=== PATIENT | male | born 1970 | race Caucasian/White ===

== ENCOUNTER 2020-05-15 | Outpatient (REF) | payer BC, SELFPAY | END 2020-05-15 00:01 | disposition home or self-care (01) | LOC: HO.LNP | PROVIDERS: Visit Provider Nurse Practitioner Family | DX: Z20.828 Contact with and (suspected) exposure to other viral communicable diseases (principal) | CPT/HCPCS: U0003 ==

== ENCOUNTER 2020-05-16 10:37 | Outpatient (REF) | payer BC, SELFPAY | END 2020-05-16 10:38 | disposition home or self-care (01) | LOC: HO.LAB 10:37 | PROVIDERS: Visit Provider Nurse Practitioner Family | DX: Z13.89 Encounter for screening for other disorder (principal) | CPT/HCPCS: U0003 ==

== ENCOUNTER 2024-05-18 10:06 | Emergency (ER) | payer OTHER, BC, SELFPAY ==
--- NOTE | ~2024-05-18 | XR_ITS ---
EXAMINATION: XR CLAVICLE, RIGHT CLINICAL INFORMATION: Work injury. Patient states injury at work yesterday. Pointed to lump on clavicle. COMPARISON: None available. TECHNIQUE: Two views of the right clavicle. FINDINGS: Moderate degenerative changes with hypertrophic change in the acromioclavicular joint. Glenohumeral alignment maintained. No displaced fracture of the clavicle is appreciated. Mild focal periosteal reaction along the superior aspect of the distal shaft of the clavicle of uncertain etiology and significance. XR/XR clavicle RT IMPRESSION: 1. Moderate degenerative changes in the acromioclavicular joint. 2. No displaced fracture of the clavicle is appreciated. 3. Mild focal periosteal reaction along the superior aspect of the distal shaft of the clavicle of uncertain etiology and significance. This study was presented today, May 18, 2024, for interpretation. Stat results provided at this time as requested by referring provider. Electronically signed by: Samara Bravo MD 05/18/2024 11:35 AM [facility]
[2024-05-18 10:31] VITALS: BP 145/82; PULSE 62; RESP 16; TEMP 36.8; O2SAT 98; BMI 27.5
--- NOTE | 2024-05-18 12:00 | ED_ITS ---
HPI - Extremity Problem General Chief complaint: Extremity Injury, Upper Stated complaint: shoulder blade/ work inj Time Seen by Provider: 05/18/24 11:59 Source: patient Mode of arrival: ambulatory Limitations: no limitations History of Present Illness ED Provider: Anita JOYCE Narrative: Patient is a 53-year-old male presenting to emergency department with complaint of right anterior shoulder/clavicle pain since yesterday. 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 Reports the area has bothered him for the past several months but he chalked it up to aches and pains related to aging. He denies any initial precipitating fall or other trauma. Denies any weakness, numbness, tingling to arm. Has not taken any [id number] medications for his symptoms prior to arrival. Reports raised area to medial aspect of clavicle. Onset (ago): day(s) Location: right Quality: aching Relieving factors: rest Exacerbating factors: range of motion Associated symptoms: denies other symptoms Related Data Home Medications ?Medication ?Instructions ?Recorded ?Confirmed albuterol sulfate 90 mcg/actuation 2 puff PO Q4H PRN wheezing 05/15/20 aerosol inhaler citalopram 10 mg tablet 10 mg PO DAILY 05/15/20 Previous Rx's ?Medication ?Instructions ?Recorded amoxicillin 875 mg-potassium 1 tab PO BID 10 days #20 tabs 05/16/20 clavulanate 125 mg tablet (Augmentin) lidocaine 5 % topical patch 1 patch topical DAILY #15 ea 05/18/24 naproxen 500 mg tablet 500 mg PO BID #28 tabs 05/18/24 Allergies Allergy/AdvReac Type Severity Reaction Status Date / Time No Known Allergies Allergy Verified 05/18/24 10:34 Review of Systems Review of Systems: As per HPI. Yes all other systems are reviewed and are negative Constitutional: Constitutional: Reports as per HPI [facility] Social History Social History Advance Directives: No Advance Directives Information Provided: Yes Physical Exam Vital Signs: Vital Signs: Last Vital Signs Temp 98.2 F 05/18/24 10:31 Pulse 62 05/18/24 10:31 Resp 16 05/18/24 10:31 BP 145/82 H 05/18/24 10:31 Pulse Ox 98 05/18/24 10:31 O2 Del Method Room Air 05/18/24 10:31 BMI result Body Mass Index 27.5 Vital signs have been reviewed and appear to be correct. Blood pressure normal. Heart rate normal. Respiratory rate normal. Temperature normal. Oxygen saturation normal. Const: General: cooperative, healthy appearing and no acute distress Orientation/consciousness: oriented to person, oriented to place, oriented to time and patient oriented x3 Limitations: no limitations HEENT: Head: Yes normocephalic and Yes atraumatic Ears: external ears normal General nose exam: Normal external nose present Face and sinus: Yes face symmetric Mouth: oropharynx normal and moist mucous membranes Throat: Yes uvula midline Eyes: Pupils: Equal, round and reactive pupils present Neck: Neck: Yes normal visual inspection and Yes supple Resp: Effort & Inspection: normal respiratory effort and able to speak in complete sentences Auscultation: clear to auscultation bilaterally Cardio: Rate: regular rate Rhythm: regular rhythm Heart sounds: S1 normal heart sound present and S2 normal heart sound present GI: Palpation (GI): Soft to palpation and nontender Auscultation: normoactive bowel sounds : General: Yes no CVA tenderness Back/Spine/Pelvis: Back: no CVA tenderness Skin: General skin exam: elasticity normal and turgor normal Neuro: General: oriented to person, oriented to place, oriented to time, patient oriented x3, moves all extremities, no focal motor deficits and CN's II- XI intact bilaterally Cranial nerves: Yes Equal, round and reactive pupils present Cognition (Neuro): normal cognition Extrem: General: Yes full ROM, Yes no pedal edema and Yes no calf tenderness Right upper extremity: shoulder/upper arm Details: axillary nerve sensory function normal, normal ROM and deformity Location: of the clavicle Location: medially (mild, no tenderness); no tenderness, no ecchymosis and no unusual warmth and Extremity exam: right hand Details: vascular exam Details: radial pulse present and normal ROM of fingers Psych: Mental Status: mental status grossly normal Affect: normal affect Thought process: Normal thought process present Medical Decision Making Medical Decision Making MDM Narrative: Patient is a 53-year-old male presenting to emergency department with complaint of right anterior shoulder/clavicle pain since yesterday. On exam patient is awake, A+Ox3, VS WNL, afebrile, normal neurological exam without focal deficits, physical exam findings as above. Given reported symptoms and physical exam findings, initial differential includes shoulder strain, sprain, clavicle contusion, fracture. X-ray notable for degenerative changes to AC joint, no displaced fracture, mild periosteal reaction to superior aspect of distal clavicle. My interpretation is in agreement with the radiologist's interpretation. Results discussed with patient and all questions answered. Will refer to ortho for further evaluation and management. Prescriptions for naproxen and lidocaine patches sent to pharmacy. Return precautions discussed at bedside. Patient verbalized understanding of and agreement with plan. Differential Diagnosis Differential Diagnoses: The differential diagnosis associated with the presentation includes As per MDM. Independent Interpretation I performed an independent interpretation of an: Plain X-Ray Interpretation: R clavicle xray notable for degenerative changes to the AC joint, no fracture Radiology Impression Discussion of test interpretation with radiology: I have reviewed the radiologi st's reading. Radiologist Impression: XR/XR clavicle RT IMPRESSION: 1. Moderate degenerative changes in the acromioclavicular joint. 2. No displaced fracture of the clavicle is appreciated. 3. Mild focal periosteal reaction along the superior aspect of the distal shaft of the clavicle of uncertain etiology and significance. External Record Review External record reviewed: Inpatient record, Office record and Outpatient record Prescription Management I considered prescription management with: Pain Medication Discharge Plan Discharge Clinical Impression: Pain in right shoulder Patient Disposition: Home, Self-Care Instructions: Osteoarthritis (DC), Shoulder Pain (ED) Additional Instructions: You were evaluated in the emergency department today for shoulder pain. We recommend that you follow-up with orthopedics for further evaluation and management. You are being prescribed naproxen and topical lidocaine patches, use these as prescribed. Do not apply heat directly over the patches. Return to the emergency department if you develop worsening pain, new redness, swelling, warmth, fevers, change of color in your arm or any other concerning symptoms. Prescriptions: New naproxen 500 mg tablet 500 mg PO BID Qty: 28 0RF lidocaine 5 % adhesive patch,medicated 1 patch topical DAILY Qty: 15 0RF Rx Instructions: leave on most painful area for up to 12 hrs No Action citalopram 10 mg tablet 10 mg PO DAILY albuterol sulfate 90 mcg/actuation HFA aerosol inhaler 2 puff PO Q4H PRN (Reason: wheezing) amoxicillin-pot clavulanate [Augmentin] 875-125 mg tablet 1 tab PO BID 10 Days Qty: 20 0RF Referrals: [facility] [place] [facility] [Provider Group] - 1 week Print Language: [place] Ze[place]
[2024-05-18 12:48] VITALS: BP 145/82; PULSE 62; RESP 16; TEMP 36.8; O2SAT 98
== END 2024-05-18 12:48 | disposition home or self-care (01) ==
PROVIDERS: Emergency Provider Emergency Medicine
DX: Z04.2 Encounter for examination and observation following work accident (principal); M25.511 Pain in right shoulder
CPT/HCPCS: 73000; 99282; 99283

== ENCOUNTER 2024-06-15 08:49 | Outpatient (REF) | payer OTHER, BC, SELFPAY ==
--- NOTE | ~2024-06-15 | XR_ITS ---
EXAMINATION: XR SHOULDER, RIGHT CLINICAL INFORMATION: M25.511 - Pain in right shoulder. COMPARISON: None available. TECHNIQUE: Three views of the right shoulder. FINDINGS: Moderate degenerative changes in the acromioclavicular joint with joint space narrowing and hypertrophic change. Mild degenerative changes in the glenohumeral joint with inferior hypertrophic change. Previously noted mild focal periosteal reaction along the superior aspect of the distal shaft of the clavicle is less conspicuous, although this could be related to differences in positioning. XR/XR shoulder RT min 2V IMPRESSION: [id number] degenerative changes as detailed above. Electronically signed by: Samara Bravo MD 06/20/2024 12:15 PM [facility]
== END 2024-06-15 08:50 | disposition home or self-care (01) ==
LOC: HO.HOSX 08:49
PROVIDERS: Visit Provider Physician Assistant
DX: M25.511 Pain in right shoulder (principal); M19.011 Primary osteoarthritis, right shoulder; S46.911A Strain of unspecified muscle, fascia and tendon at shoulder and upper arm level, right arm, initial encounter; X50.1XXA Overexertion from prolonged static or awkward postures, initial encounter; Y93.89 Activity, other specified; Y92.9 Unspecified place or not applicable; Y99.0 Civilian activity done for income or pay
CPT/HCPCS: 73030; 99202

== ENCOUNTER 2024-06-15 13:54 | Outpatient (AMB) | payer OTHER, BC, SELFPAY ==
--- NOTE | 2024-06-15 14:16 | A.OFFVIS_ITS ---
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 Patient reports that he was installing a windshield when he felt a popping sensation in his shoulder. He presented to [facility] [place] ER the following day where x-rays were taken and referred to orthopedics. Currently he has pain and soreness at the end of a work day. He has been taking naproxen and lidocaine patches dulls his pain. He has a constant ache that increases at the end of a work day as well as a tightness sensation. States that he feels like he pulled a muscle. Allergies No Known Allergies Allergy (Verified 06/15/24 14:26) Medication List - Last Reconciled 06/15/24 by Tino Daily PA-C citalopram 10 mg PO DAILY lidocaine 5% 1 patch topical DAILY naproxen 500 mg PO BID HPI HPI [employer]ESPERSON [employer]ECKTIES- ED f/u WC Right shoulder pain/OA: Details: 53 yo male presents to the office today for an injury he sustained to the right shoulder while at work on 05/17/24. He states he was installing a windshield to a vehicle when he felt a pop along the collar bone and shoulder. he states he has pain that goes into the shoulder and also along the trap into the neck. At this moment he is able to range the shoulder, but after working he has increased pain and limited ROM. 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 He does have tenderness over the AC joint of the shoulder. He also has tenderness along the trapezium which extends into the right side of the neck. Full range of motion of the shoulder. No rotator cuff should weakness. Neurovascular intact. Results Reviewed Results Reviewed: X-rays of the right shoulder obtained in the office today are negative for any acute or chronic abnormalities. He does have mild AC joint arthritis. Assessment & Plan Assessment & Plan (1) Osteoarthritis of right acromioclavicular joint: Code(s): M19.011 - Primary osteoarthritis, right shoulder Category: Medical (2) Right shoulder strain: Code(s): S46.911A - Strain of unspecified muscle, fascia and tendon at shoulder and upper arm level, right arm, initial encounter Category: Medical Plan We discussed options today which include modification of activities. He feels as though he is able to perform his work duties without limitations. He was given an order for physical therapy to work on range of motion, rotator cuff and periscapular stabilization. Recommend anti-inflammatory use for flare-ups. He will increase activities as tolerated and if symptoms persist or worsen he will contact our office otherwise follow-up as needed. Orders: Orders XR shoulder RT min 2V Today M25.511 - Pain in right shoulder PT Evaluation and Treatment Today M19.011 - Primary osteoarthritis, right shoulder, S46.911A - Strain of unspecified muscle, fascia and tendon at shoulder and upper arm level, right arm, initial encounter Coding Level of Care Code New Pt Level 3 (83554) Complex EM visit Add On G2211 Diagnoses Osteoarthritis of right acromioclavicular joint M19.011 Right shoulder strain S46.911A
[2024-06-15 14:26] VITALS: BMI 27.4
== END 2024-06-15 15:03 | disposition home or self-care (01) ==
PROVIDERS: Visit Provider Physician Assistant
DX: M19.011 Primary osteoarthritis, right shoulder (principal); S46.911A Strain of unspecified muscle, fascia and tendon at shoulder and upper arm level, right arm, initial encounter
CPT/HCPCS: 99203; G2211